=== PATIENT | female | born 1960 | race Caucasian/White ===

== ENCOUNTER 2019-12-29 15:25 | Emergency (ER) | payer MEDICAID, SELFPAY ==
--- NOTE | 2019-12-29 15:51 | XR_ITS ---
PROCEDURE: XR KNEE LT 3V CLINICAL INDICATION: FALL Posttraumatic pain COMPARISON: No exams were available for comparison FINDINGS: There is a vague lucency along the medial aspect of the patella on the oblique view. Please correlate as the patient's area of pain and swelling. 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 IMPRESSION: Vague longitudinal lucency along the medial aspect of the patella raising the suspicion of a nondisplaced fracture. Please correlate with clinical findings. Otherwise negative Dictated by: Milton Lopez MD 12/29/2019 16:11 Milton Lopez MD in [place] 12/29/2019 16:11
[2019-12-29 15:57] VITALS: BP 134/92; PULSE 83; RESP 21; TEMP 36.8; O2SAT 99; BMI 25.8
[2019-12-29 15:59] VITALS: BP 134/92; PULSE 83; RESP 21; TEMP 36.8; O2SAT 99; BMI 25.7
--- NOTE | 2019-12-29 16:03 | HMH.EDUTC ---
[facility] [place] Disposition Clinical Impression: Patella fracture Qualifiers: Encounter type: initial encounter Fracture type: closed Fracture morphology: longitudinal Fracture alignment: nondisplaced Laterality: left Qualified Code(s): S82.025A - Nondisplaced longitudinal fracture of left patella, initial encounter for closed fracture Disposition: Home, Self-Care Condition on Discharge: Good Instructions: How to Use Crutches, How To Perform RICE (Rest, Ice, Compress, Elevate) Additional Instructions: *RICE, Rest the extremity, Ice 15-20 minutes 3-4 times daily, Compress- wear the wesley wrap as discussed as much as possible to help reduce swelling and pain, Elevate the extremity when at rest *Wesley wrap is for support and help control swelling, use it except in the shower. Be sure that is not to tight but not to loose either *Elevate when resting *Ibuprofen every 6-8 hours as needed for pain an inflammation. If need something more can take Tylenol in between doses of Ibuprofen to help Immediately follow up with your family doctor for new or worsening of symptoms, or no noticeable improvement over the next 3-5 days Referrals: Provider,Referral, [Primary Care Provider] - As needed Erma Robertson MD [Physician] - 01/04/20 10:00 am Time of Disposition: 16:32 Medical Decision Making - Thierry Inquiry Pt receiving controlled substance: No Thierry was queried for this patient: No Vital Signs: 12/29/19 15:57 12/29/19 15:59 12/29/19 16:35 Temperature 98.2 F 98.2 F 98.2 F Temperature Source Oral Oral Pulse Rate 83 Pulse Rate [Left Brachial] 83 83 Respiratory Rate 21 21 21 Blood Pressure 134/92 H Blood Pressure [Left Arm] 134/92 H 134/92 H Blood Pressure Mean [Left Arm] 106 106 Blood Pressure Source [Left Arm] Automatic Cuff Automatic Cuff Blood Pressure Position [Left Arm] Sitting Sitting 02 Sat by Pulse Oximetry 99 99 Oxygen Delivery Method Room Air Room Air - Radiology Data #1 Image(s): Knee (left) Image Reviewed: Yes I have reviewed radiologist's interpretation Vague longitudinal lucency along the medial aspect of the patella raising the suspicion of a nondisplaced fracture. Please correlate with clinical findings. Otherwise negative - Physician Consults Physician Consulted: Marcelo Time: 16:15 Reason -: Orthopedic Eval/Care Comment/Response: Spoke with staff in clinic and informed them of Radiology reading and they give patient appointment for Jan 03 at 10 am [facility] [place] HPI - General Stated complaint: AO fall 12/29/19 injured L ankle Time Seen by Provider: 12/29/19 16:03 Mode of Arrival: Ambulatory Source of Information: Patient Limitations: No Limitations Description of Symptoms (Recalled from Triage Doc. 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 DENIES HITTING HEAD OR LOC HEENT Symptoms (Recalled from RN notes): No Resp Symptoms (Recalled from RN notes): No Skin Symptoms (Recalled from RN notes): No MS Symptoms (Recalled from RN notes): Yes Functional Status (Recalled from RN notes): WNL - History of Present Illness Provider Complaint: Patient states that she was helping to move some stuff outside when she tripped over a log or something and twisted her left knee and fell landing on her left knee. States that ever since she has been having pain and unable to bare weight on it Denies any other injury - Related Data Allergies Allergy/AdvReac Type Severity Reaction Status Date / Time fentanyl Allergy Verified 12/29/19 16:02 - Worker's Comp Is this a Worker's Comp case?: No [facility] History - Hepatitis A Screen Drug use history?: No High risk sexual behaviors?: No History of sexually transmitted infection?: No Currently employed?: No Childcare worker?: No Do you have indoor plumbing?: Yes Do you have electricity?: Yes Attestation statement:: This patient has been screened for Hepatitis A risk factors. I have reviewed the patient's past medical h
[2019-12-29 16:35] VITALS: BP 134/92; PULSE 83; RESP 21; TEMP 36.8; O2SAT 99
== END 2019-12-29 16:40 | disposition home or self-care (01) ==
LOC: ER 15:50 → UTC 15:50
PROVIDERS: Emergency Provider Nurse Practitioner
DX: S82.025A Nondisplaced longitudinal fracture of left patella, initial encounter for closed fracture (principal); W01.0XXA Fall on same level from slipping, tripping and stumbling without subsequent striking against object, initial encounter
CPT/HCPCS: 29505; 73562; 99202

== ENCOUNTER 2020-08-16 22:39 | Emergency (ER) | payer MEDICAID, SELFPAY ==
[2020-08-16 22:37] VITALS: BP 153/70; PULSE 86; RESP 15; TEMP 37.2; O2SAT 99; BMI 22.6
[2020-08-16 22:46] VITALS: BMI 31.8
--- NOTE | 2020-08-16 22:46 | XR_ITS ---
PROCEDURE: XR CHEST PORTABLE CLINICAL HISTORY: od COMPARISON: No exams were available for comparison FINDINGS: The cardiomediastinal silhouette and pulmonary vascularity are within normal limits. The lungs are clear without infiltrates, suspicious nodules, or pleural effusions. No acute bony abnormalities. IMPRESSION: No acute findings. Dictated by: Milton Lopez MD 08/17/2020 06:08 Milton Lopez MD in [place] 08/17/2020 06:08
--- NOTE | 2020-08-16 22:49 | PC.NURSE ---
pt's boyfriend at bedside
[2020-08-16 22:54] LABS: Microscopic, Urine URINE MICROSCOPIC (MICROSCOPIC)
[2020-08-16 22:58] LABS: Basophils % 0.3 % (0.1-2.0); Eosinophils # 0.1 K/mm3 (0.0-0.4); Eosinophils % 0.9 % (0.1-12.0); Hematocrit 37.7 % (37.0-47.0); Hemoglobin 12.2 g/dL (12.2-16.2); Lymphocytes # 5.8 K/mm3 (0.7-4.5); Lymphocytes % 46.4 % (10-50); Mean Corpuscular HGB Conc 32.4 g/dL (31.8-35.4); Mean Corpuscular Hemoglobin 27.3 pg (27.0-31.2); Mean Corpuscular Volume 84.3 fl (81-99); Mean Platelet Volume 8.6 fl (7.4-10.4); Monocytes # 0.6 K/mm3 (0.1-1.0); Monocytes % 4.9 % (1.7-9.3); Neutrophils # 5.9 K/mm3 (1.8-7.8); Neutrophils % 47.5 % (37.0-80.0); Platelet Count 250 K/mm3 (142-424); Red Blood Count 4.47 M/mm3 (4.20-5.40); Red Cell Distribution Width 14.1 % (11.5-17.5); White Blood Count 12.4 K/mm3 (4.8-10.8)
[2020-08-16 23:00] LABS: Appearance,Urine SL CLOUDY (Clear); Bilirubin,Urine Negative (Negative); Blood, Urine Negative (Negative); Color,Urine YELLOW (Yellow); Glucose,Urine (UA) Negative (Negative); Ketones,Urine Negative (Negative); Leukocyte Esterase,Urine Negative (Negative); Nitrate,Urine Negative (Negative); Protein,Urine Negative (Negative)
[2020-08-16 23:01] VITALS: BP 141/72; PULSE 85; O2SAT 98
[2020-08-16 23:02] LABS: Anion Gap 16.7 mEq/L (5-15); Blood Urea Nitrogen 14 mg/dl (7-17); Calcium 9.6 mg/dl (8.4-10.2); Carbon Dioxide 21 mmol/L (22.0-30.0); Chloride 103 mmol/L (98-107); Creatinine Clearance Estimated 99 mL/min (50-200); Estimated Glomerular Filt Rate 74 ml/min (>60); GFR (African American) 89 ML/MIN (>60); Glucose 112 mg/dl (74-100); Potassium 3.7 mmoL/L (3.5-5.1); Sodium 137 mmol/L (136-145)
[2020-08-16 23:03] LABS: Bacteria,Urine 4+ /lpf; Squamous Epithelial Cell,Urine TNTC #/hpf (0-5); WBC,Urine Occasional #/hpf (0-3)
[2020-08-16 23:06] LABS: Acetaminophen < 10 ug/ml (10-30); Ethyl Alcohol < 10 mg/dl (0-10); Salicylate < 1.0 mg/dL (2.0-20.0)
[2020-08-16 23:08] LABS: Amphetamine/Metha Screen,Urine Negative ng/ml (<1000)
[2020-08-16 23:09] LABS: Barbiturates Screen,Urine Negative ng/ml (<200); Benzodiazepines Screen,Urine Negative ng/ml (<200)
[2020-08-16 23:10] LABS: Cannabinoid Screen,Urine Negative ng/ml (<50)
[2020-08-16 23:11] LABS: Cocaine Screen,Urine Negative ng/ml (<300); Methadone Screen,Urine Negative ng/ml (<300)
[2020-08-16 23:12] LABS: Opiate Screen,Urine Positive ng/ml (<300); Phencyclidine Screen,Urine Negative ng/ml (<25)
[2020-08-16 23:14] LABS: Troponin I < 0.01 ng/ml (0.00-0.034)
[2020-08-16 23:31] VITALS: BP 117/97; PULSE 87; O2SAT 98
--- NOTE | 2020-08-16 23:32 | HMH.EDOD ---
ED Disposition Clinical Impression: Left against medical advice, Poisoning by opiate or related narcotic Disposition: Left Against Medical Advice Condition on Discharge: Good Instructions: DI for Drug Overdose in Adults Additional Instructions: see pcp for follow up Referrals: PCP,No [Primary Care Provider] - - Critical Care Critical Care Time: No Attestation: On 08/16/20, the high probability of a clinically significant, sudden or life threatening deterioration of the following system(s) required my full and direct attention, intervention and personal management. The time I documented below is in addition to time spent performing reported procedures but includes the following listed in this critical care notation. Medical Decision Making - Medical Records Medical records reviewed: Yes: I reviewed the patient's medical records. - Thierry Inquiry Pt receiving controlled substance: No Vital Signs: 08/16/20 22:37 08/16/20 23:01 08/16/20 23:31 Temperature 99.0 F Temperature Source Oral Pulse Rate 85 87 Pulse Rate [Right Brachial] 86 Respiratory Rate 15 Blood Pressure 141/72 H 117/97 H Blood Pressure [Right Arm] 153/70 H Blood Pressure Mean 94 102 Blood Pressure Mean [Right Arm] 97 Blood Pressure Source Blood Pressure Position 02 Sat by Pulse Oximetry 99 98 98 Oxygen Delivery Method Room Air 08/16/20 23:42 08/16/20 23:51 08/16/20 23:56 Temperature Temperature Source Pulse Rate 88 89 92 H Pulse Rate [Right Brachial] Respiratory Rate Blood Pressure 92/39 L 151/77 H 139/68 Blood Pressure [Right Arm] Blood Pressure Mean 56 101 98 Blood Pressure Mean [Right Arm] Blood Pressure Source Blood Pressure Position 02 Sat by Pulse Oximetry 98 98 98 Oxygen Delivery Method 08/17/20 00:15 08/17/20 00:34 08/17/20 00:52 Temperature Temperature Source Pulse Rate 91 H 89 89 Pulse Rate [Right Brachial] Respiratory Rate Blood Pressure 133/107 H 130/61 129/78 Blood Pressure [Right Arm] Blood Pressure Mean 105 95 Blood Pressure Mean [Right Arm] Blood Pressure Source Blood Pressure Position 02 Sat by Pulse Oximetry 97 97 97 Oxygen Delivery Method 08/17/20 01:30 08/17/20 02:03 08/17/20 03:30 Temperature Temperature Source Pulse Rate 96 H 100 H Pulse Rate [Right Brachial] Respiratory Rate Blood Pressure 124/99 H 139/70 Blood Pressure [Right Arm] Blood Pressure Mean 93 Blood Pressure Mean [Right Arm] Blood Pressure Source Blood Pressure Position 02 Sat by Pulse Oximetry 97 97 Oxygen Delivery Method Room Air 08/17/20 03:34 Temperature 98.9 F Temperature Source Oral Pulse Rate 95 H Pulse Rate [Right Brachial] Respiratory Rate 16 Blood Pressure 142/74 H Blood Pressure [Right Arm] Blood Pressure Mean Blood Pressure Mean [Right Arm] Blood Pressure Source Automatic Cuff Blood Pressure Position Sitting 02 Sat by Pulse Oximetry Oxygen Delivery Method Room Air - Lab Data Lab results reviewed: Yes: I reviewed the patient's lab results. Lab Results 08/16/20 22:35: WBC 12.4 H, RBC 4.47, Hgb 12.2, Hct 37.7, MCV 84.3, MCH 27.3, MCHC 32.4, RDW 14.1, Plt Count 250, MPV 8.6, Neut % (Auto) 47.5, Lymph % (Auto) 46.4, [place] % (Auto) 4.9, Eos % (Auto) 0.9, Baso % (Auto) 0.3, Neut # (Auto) 5.9, Lymph # (Auto) 5.8 H, [place] # (Auto) 0.6, Eos # (Auto) 0.1, Baso # (Auto) 0.0 08/16/20 22:35: Sodium 137, Potassium 3.7, Chloride 103, Carbon Dioxide 21 L, Anion Gap 16.7 H, BUN 14, Creatinine 0.80, Estimated Creat Clear 99, Estimated GFR 74, Est GFR ( Amer) 89, Glucose 112 H, Calcium 9.6, Troponin I < 0.01, Salicylates < 1.0 L, Acetaminophen < 10 L 08/16/20 22:35: Plasma/Serum Alcohol < 10 08/16/20 22:38: Urine Color Yellow, Urine Appearance Sl cloudy, Urine pH 8.0, Ur Specific [place] 1.020, Urine Protein Negative, Urine Glucose (UA) Negative, Urine Ketones Negative, Urine Blood Negative, Urine Nitrate Neg
[2020-08-16 23:42] VITALS: BP 92/39; PULSE 88; O2SAT 98
[2020-08-16 23:51] VITALS: BP 151/77; PULSE 89; O2SAT 98
[2020-08-16 23:56] VITALS: BP 139/68; PULSE 92; O2SAT 98
[2020-08-17 00:15] VITALS: BP 133/107; PULSE 91; O2SAT 97
[2020-08-17 00:34] VITALS: BP 130/61; PULSE 89; O2SAT 97
[2020-08-17 00:52] VITALS: BP 129/78; PULSE 89; O2SAT 97
[2020-08-17 00:54] LABS: Adenovirus,PCR Not Detected (NotDetected); Bordetella Pertussis Not Detected (NotDetected); Chlamydophila Pneumoniae, PCR Not Detected (NotDetected); Coronavirus 19, PCR Not Detected (NotDetected); Coronavirus 229E Not Detected (NotDetected); Coronavirus NL63 Not Detected (NotDetected); Coronavirus OC43 Not Detected (NotDetected); Coronovirus HKU1,PCR Not Detected (NotDetected); Human Metapneumovirus Not Detected (NotDetected); Influenza A, PCR Not Detected (NotDetected); Influenza AH1, 2009 Not Detected (NotDetected); Influenza AH1, PCR Not Detected (NotDetected); Influenza AH3,PCR Not Detected (NotDetected); Influenza B, PCR Not Detected (NotDetected); Mycoplasma Pneumoniae, PCR Not Detected (NotDetected); Parainfluenza 1, PCR Not Detected (NotDetected); Parainfluenza 2, PCR Not Detected (NotDetected); Parainfluenza 3, PCR Not Detected (NotDetected); Parainfluenza 4, PCR Not Detected (NotDetected); Respiratory Syncytial Virus Not Detected (NotDetected); Rhinovirus/Enterovirus Not Detected (NotDetected)
--- NOTE | 2020-08-17 01:16 | PC.NURSE ---
pt able to follow commands and moved up in the bed by herself. continues to thrash around repetitively despite being able to communicate
--- NOTE | 2020-08-17 01:17 | PC.NURSE ---
pt is answering questions appropriately. continues to move around in the bed erratically. family and staff remain at bedside for safety. sr up x2.
[2020-08-17 01:30] VITALS: BP 124/99; PULSE 96; O2SAT 97
[2020-08-17 02:03] VITALS: BP 139/70; PULSE 100; O2SAT 97
--- NOTE | 2020-08-17 02:05 | PC.NURSE ---
daughter at bedside. staff remains present at bedside. vomiting again. new order noted
[2020-08-17 03:34] VITALS: BP 142/74; PULSE 95; RESP 16; TEMP 37.2; O2SAT 99
== END 2020-08-17 03:34 | disposition left against medical advice (07) ==
PROVIDERS: Emergency Provider Emergency Medicine
DX: T40.1X1A Poisoning by heroin, accidental (unintentional), initial encounter (principal)
CPT/HCPCS: 71045; 80048; 80305; 80329; 81001; 84484; 85025; 87086; 87581; 87633; 87798; 96365; 96375; 99283; J2310; J2405